=== PATIENT | female | born 1950 | race Native Hawaiian/Other Pacific Islander ===

== ENCOUNTER 2017-09-17 13:02 | Outpatient (CLI) | payer OTHER | END 2017-09-17 20:35 | disposition home or self-care (01) | LOC: MAMMO 13:02 | DX: Z12.31 Encounter for screening mammogram for malignant neoplasm of breast (principal) ==

== ENCOUNTER 2021-01-15 09:06 | Outpatient (CLI) | payer OTHER | END 2021-01-15 20:12 | disposition home or self-care (01) | LOC: EDSEX 09:06 → MAMMO 09:06 → RAD 09:30 → MAMMO 20:12 | PROVIDERS: ATTEND Family Medicine | DX: M81.0 Age-related osteoporosis without current pathological fracture (principal); Z12.31 Encounter for screening mammogram for malignant neoplasm of breast ==